=== PATIENT | female | born 1955 | race Caucasian/White ===

== ENCOUNTER 2021-05-06 10:49 | Outpatient (CLI) | payer BC, SELFPAY ==
--- NOTE | ~2021-05-06 | MM_ITS ---
EXAMINATION: MM screening tasia BI w claudia HISTORY: Screening TECHNIQUE: Craniocaudal and mediolateral oblique 3-D tomosynthesis images were obtained and synthetic 2-D images were generated. CAD analysis was submitted and interpreted. COMPARISON: No prior mammogram is available for comparison at this institution. BREAST PARENCHYMAL COMPOSITION: There are scattered areas of fibroglandular density. FINDINGS: There is a focal asymmetry in the lower inner quadrant of the right breast. There are no kline spicious masses, calcifications or architectural distortion in the left breast to suggest malignancy. IMPRESSION: 1. Focal right breast asymmetry. 2. Additional mammographic views and possible breast ultrasound are recommended. BI-RADS Category 0: Incomplete: Needs additional imaging evaluation. Reviewed, dictated and finalized at location A. IMPRESSION: 1. Focal right breast asymmetry. 2. Additional mammographic views and possible breast ultrasound are recommended . BI-RADS Category 0: Incomplete: Needs additional imaging evaluation.
== END 2021-05-06 10:50 | disposition home or self-care (01) ==
LOC: CHSIMG 10:51
PROVIDERS: PCP Family Medicine; Visit Provider Family Medicine
DX: Z12.31 Encounter for screening mammogram for malignant neoplasm of breast (principal)
CPT/HCPCS: 77063; 77067

== ENCOUNTER 2021-05-18 08:22 | Outpatient (CLI) | payer BC, SELFPAY ==
--- NOTE | ~2021-05-18 | XR_ITS ---
XR shoulder RT min 2V DATE: 05/18/2021 08:46 INDICATION: Right shoulder pain, limited range of motion. Impingement syndrome of right. Shoulder TECHNIQUE: 4 views COMPARISON: None FINDINGS: There is spurring at the right acromioclavicular joint consistent with degenerative change. Spurring is particularly prominent inferiorly. No fracture or dislocation, periosteal reaction or bone destruction or abnormal right shoulder soft t issue calcification is detected. IMPRESSION: Degenerative spurring at right acromioclavicular joint, particularly prominent inferiorly Reviewed, dictated and finalized at location B. IMPRESSION: Degenerative spurring at right acromioclavicular joint, particularl y prominent inferiorly
== END 2021-05-18 08:23 | disposition home or self-care (01) ==
LOC: CHSIMG 08:25
PROVIDERS: PCP Family Medicine; Visit Provider Family Medicine
DX: M75.41 Impingement syndrome of right shoulder (principal)
CPT/HCPCS: 73030

== ENCOUNTER 2021-05-25 08:00 | Outpatient (CLI) | payer BC, SELFPAY ==
--- NOTE | ~2021-05-25 | MM_ITS ---
CORRECTED REPORT ORDER CHANGED [facility] [place] 0910 05/26/21 MM diagnostic tasia RT w claudia DATE: 05/25/2021 08:34 INDICATION: Focal asymmetry in the lower inner quadrant of right breast on 05/06/2021 screening mammogram TECHNIQUE: Digital ML full-field and right craniocaudal and MLO spot Tomosynthesis images. Rolled medial and rolled lateral craniocaudal views. COMPARISON: 05/06/2021 bilateral digital screening mammogram FINDINGS: No suspicious mass or architectural distortion, malignant calcification, skin thickening or retraction of the right breast is detected. There is no reproducible abnormality is noted at the lower inner quadrant of the left breast. IMPRESSION: BI-RADS Category 1: Negative Recommendation: Routine annual mammographic screening Reviewed, dictated and finalized at Location A. Reviewed, dictated and finalized at location A. MTDD
== END 2021-05-25 08:01 | disposition home or self-care (01) ==
LOC: CHSIMG 08:03
PROVIDERS: PCP Family Medicine; Visit Provider Family Medicine
DX: R92.8 Other abnormal and inconclusive findings on diagnostic imaging of breast (principal)
CPT/HCPCS: 77061; 77065; G0279

== ENCOUNTER 2022-01-01 07:54 | Outpatient (CLI) | payer BC, SELFPAY ==
--- NOTE | ~2022-01-01 | MR_ITS ---
EXAMINATION: MR brain/brain stem wo con DATE: 01/01/2022 15:50 CDT INDICATION: Headache TECHNIQUE: Magnetic resonance imaging (MRI) of the brain and brainstem was performed without intraven ous contrast. Sequences included sagittal and axial T1-weighted SE, axial diffusion-weighted FS SE, a xial T2*-weighted GRE, axial T2-weighted FLAIR Propeller, and axial T2-weighted Propeller. Apparent d iffusion coefficient (ADC) maps were created. COMPARISON: FINDINGS: The brain volume and ventricular system are within normal limits. The brain parenchymal si gnal intensity pattern and cantu/white matter is normal and there is no evidence of hemorrhage, space occupying masses or infarctions. There are scattered mild periventricular and subcortical white matte r changes, most likely related to small vessel ischemic disease (microangiopathy). The flow signal voids of the major arterial structures about the [place] and within the brando r dural venous sinuses appear grossly unremarkable and patent. The seventh and eighth cranial nerve complexes are normal. The mid sagittal image demonstrates a normal craniovertebral junction and vicente us callosum. The paranasal sinuses are grossly unremarkable. IMPRESSION: 1: No acute intracranial abnormality. 2: Chronic age-related findings. Reviewed, dictated and finalized at location A.
== END 2022-01-01 07:55 | disposition home or self-care (01) ==
LOC: CHSIMG 07:55
PROVIDERS: PCP Family Medicine; Visit Provider Family Medicine
DX: R51.9 Headache, unspecified (principal); G89.29 Other chronic pain
CPT/HCPCS: 70551

== ENCOUNTER 2022-07-20 12:47 | Outpatient (CLI) | payer MEDICARE, SELFPAY ==
--- NOTE | ~2022-07-20 | MM_ITS ---
EXAMINATION: MM screening [facility] BI w lcaudia HISTORY: Screening TECHNIQUE: Craniocaudal and mediolateral oblique 3-D tomosynthesis images were obtained and synthetic 2-D images were generated. CAD analysis was submitted and interpreted. COMPARISON: 05/06/2021 BREAST PARENCHYMAL COMPOSITION: There are scattered areas of fibroglandular density. FINDINGS: Focal asymmetry in the lower inner quadrant of the right breast is unchanged. There is no e vidence of suspicious mass, calcification, or architectural distortion to suggest malignancy in eithe r breast. There has been no suspicious interval change. IMPRESSION: 1. No mammographic evidence of malignancy. 2. Recommend routine screening mammography in one year. BI-RADS Category 2: Benign finding(s). Reviewed, dictated and finalized at location B. AL MERCHANDISING DIRECTOR
== END 2022-07-20 12:48 | disposition home or self-care (01) ==
LOC: CHSIMG 12:49
PROVIDERS: PCP Family Medicine; Visit Provider Family Medicine
DX: Z12.31 Encounter for screening mammogram for malignant neoplasm of breast (principal)
CPT/HCPCS: 77063; 77067

== ENCOUNTER 2022-11-04 12:24 | Outpatient (CLI) | payer MEDICARE, SELFPAY ==
[2022-11-04 13:35] LABS: Alanine Aminotransferase 21 U/L (14-59); Albumin Level 4.4 g/dL (3.4-5.0); Alkaline Phosphatase 92 U/L (46-116); Anion Gap 12 mmol/L (8-16); Aspartate Amino Transferase 15 U/L (15-37); Bilirubin,Total 0.4 mg/dL (0.00-1.00); Blood Urea Nitrogen 16 mg/dL (7-18); Calcium 9.6 mg/dL (8.5-10.1); Carbon Dioxide 27 mmol/L (21-32); Chloride 103 mmol/L (98-108); Cholesterol 178 mg/dL (0-200); Estimated Glomerular Filt Rate > 60; Glucose 144 mg/dL (70-99); HDL Direct 45 mg/dL (40-60); LDL Cholesterol Calculated 85 mg/dL (<130); Osmolality Calculated 298 mOsm/kg (285-295); Potassium 4.3 mmol/L (3.5-5.1); Sodium 142 mmol/L (136-145); Total Protein 8.3 g/dL (6.4-8.2); Triglycerides 238 mg/dL (0-150); Troponin I 5.6 ng/L (0.00-60.4)
== END 2022-11-04 12:25 | disposition home or self-care (01) ==
LOC: CHSLAB 12:26
PROVIDERS: PCP Family Medicine; Visit Provider Family Medicine
DX: R07.89 Other chest pain (principal); E11.9 Type 2 diabetes mellitus without complications
CPT/HCPCS: 36415; 80053; 80061; 83036; 84484

== ENCOUNTER 2022-11-21 09:44 | Outpatient (CLI) | payer MEDICARE, SELFPAY ==
--- NOTE | 2022-11-21 11:15 | EST_ITS ---
Patient Info Name: Yelena Randall Age: 67 years : 1955 Gender: Female Ht: 62 in Wt: 198 lbs BSA: 2.03 m2 Technical Quality: Good Exam Date: 11/21/2022 11:23 AM Exam Location: [facility] Patient Status: Outpatient Admit Date: 11/21/2022 Staff Ordering Physician: Jarret Leiva DO Attending Provider: Jarret Leiva DO Exam Type: CA stress anusha w NM Study Info A regadenoson stress test was performed. History/Risk Factors Hypertension: Yes Tobacco Use: Current - Frequency Unknown History/Risk Factors Patient has no known cardiac history or risk factors. Summary 1. 1. Negative lexiscan stress test for ischemic ST changes by ECG criteria. 2. 2. Stable hemodynamics throughout the test. 3. 3. Nuclear scan to follow and will be reported separately. Please correlate with it. Protocol: LEXISCAN Stress ECG Details Stage: REST Duration (min): 3 min : 2 sec HR (bpm): 71 SBP (mmHg): 133 DBP (mmHg): 74 Stage: REST Duration (min): 6 min : 5 sec HR (bpm): 77 SBP (mmHg): 133 DBP (mmHg): 74 Stage: STAGE 1 Duration (min): 0 min : 20 sec HR (bpm): 73 SBP (mmHg): 133 DBP (mmHg): 74 Stage: RECOVERY Duration (min): 0 min : 39 sec HR (bpm): 96 SBP (mmHg): 133 DBP (mmHg): 74 Stage: RECOVERY Duration (min): 1 min : 39 sec HR (bpm): 96 SBP (mmHg): 133 DBP (mmHg): 74 Stage: RECOVERY Duration (min): 2 min : 39 sec HR (bpm): 89 SBP (mmHg): 157 DBP (mmHg): 71 Stage: RECOVERY Duration (min): 3 min : 39 sec HR (bpm): 89 SBP (mmHg): 136 DBP (mmHg): 72 Stage: RECOVERY Duration (min): 4 min : 39 sec HR (bpm): 87 SBP (mmHg): 136 DBP (mmHg): 71 Stage: RECOVERY Duration (min): 5 min : 27 sec HR (bpm): 85 SBP (mmHg): 136 DBP (mmHg): 71 Rest HR: 77 bpm Peak HR: 98 bpm Rest Sys BP: 133 mmHg Peak Sys BP: 157 mmHg Max Pred HR: 155 bpm % Max Pred HR: 63 % Target HR: 132 bpm Max RPP: 15,386 bpm*mmHg BP Response: Normal blood pressure response Termination Reason: Completed Protocol Cardiac Symptoms: None Total Time: 0 min : 20 sec Rest Pantoja BP: 74 mmHg Peak Pantoja BP: 71 mmHg Total Dose: 0.4 mg Resting ECG Sinus rhythm, delayed precordial R/S transition. Stress ECG No abnormal ST/T wave changes. Arrhythmias Frequent PVCs. Report Signatures
--- NOTE | 2022-11-21 16:39 | WPDCARIOSTRE ---
Nuclear Stress Test INDICATIONS Indications: Chest pain PROCEDURE Procedure Performed: Myocardial Perf Spect-Multi Procedure: Patient underwent a lexiscan stress test and immediately was injected with 30.0 mCi of cardiolyte. Multiple tomographic images were obtained. These are of good quality. There is no evidence of perfusion defects with stress imaging. A separate resting images were obtained after patient was injected with 10.4 mCi of cardiolyte. Multiple tomographic images were obtained. These are of good quality. There is no evidence of perfusion defects with rest imaging. CONCLUSION Conclusion: 1. Normal myocardial perfusion imaging demonstrating no evidence of perfusion defects with stress or rest imaging. 2. No evidence of reversible ischemia. 3. Left ventriculogram demonstrates normal measured ejection fraction of 79% with no wall motion abnormalities. 4. TID score 0.9 is normal.
== END 2022-11-21 09:45 | disposition home or self-care (01) ==
LOC: CHSIMG 09:46
PROVIDERS: PCP Family Medicine; Visit Provider Family Medicine
DX: R07.9 Chest pain, unspecified (principal)
CPT/HCPCS: 78452; 93017; A9502; J2785

== ENCOUNTER 2022-12-14 08:47 | Outpatient (CLI) | payer MEDICARE, SELFPAY ==
--- NOTE | 2022-12-14 11:00 | NEURO_ITS ---
Impression: Patient reports a history of bilateral upper extremity pain. # Evidence of right ulnar neuropathy. # Normal needle/EMG exam. # Clinical correlation recommended. Nerve Conduction Studies Anti Sensory Summary Table Stim Site NR Peak (ms) P-T Amp (?V) Site1 Site2 Delta-P (ms) Dist (cm) Sal (m/s) Left Median Anti Sensory (2-3nd Digit) Wrist 3.4 42.8 Wrist 2-3nd Digit 3.4 14.0 41 Wrist 3.5 55.3 Wrist 2-3nd Digit 3.4 14.0 41 Right Median Anti Sensory (2-3nd Digit) Wrist 3.7 22.2 Wrist 2-3nd Digit 3.7 14.0 38 Wrist 3.4 21.4 Wrist 2-3nd Digit 3.7 14.0 38 Left Radial Anti Sensory (Base 1st Digit) Wrist 1.8 45.3 Wrist Base 1st Digit 1.8 0.0 Right Radial Anti Sensory (Base 1st Digit) Wrist 1.8 46.2 Wrist Base 1st Digit 1.8 0.0 Left Ulnar Anti Sensory (5th Digit) Wrist 2.8 50.9 Wrist 5th Digit 2.8 14.0 50 Right Ulnar Anti Sensory (5th Digit) Wrist 2.7 35.9 Wrist 5th Digit 2.7 14.0 52 Motor Summary Table Stim Site NR Onset (ms) O-P Amp (mV) Site1 Site2 Delta-0 (ms) Dist (cm) Sal (m/s) Left Median Motor (Abd Poll Brev) Wrist 3.2 7.2 Elbow Wrist 3.9 21.0 54 Elbow 7.1 4.5 Right Median Motor (Abd Poll Brev) Wrist 3.1 9.2 Elbow Wrist 4.0 21.0 53 Elbow 7.1 5.1 Left Ulnar Motor Run (Abd Dig Minimi) Wrist 2.5 7.8 A Elbow Wrist 5.6 31.0 55 A Elbow 8.1 6.9 B Elbow Wrist 3.7 21.0 57 B Elbow 6.2 6.9 Right Ulnar Motor (Abd Dig Minimi) Wrist 2.8 10.1 A Elbow Wrist 5.6 27.0 48 A Elbow 8.4 7.0 B Elbow Wrist 4.2 18.0 43 B Elbow 7.0 6.9 F Wave Studies NR F-Lat (ms) L-R F-Lat (ms) Left Median (Mrkrs) (Abd Poll Brev) 27.48 1.40 Right Median (Mrkrs) (Abd Poll Brev) 26.08 1.40 Left Ulnar (Mrkrs) (Abd Dig Min) 27.65 0.78 Right Ulnar (Mrkrs) (Abd Dig Min) 26.87 0.78 EMG Side Muscle Nerve Root Ins Act Fibs Amp Dur Recrt Comment Right 1stDorInt Ulnar C8-T1 Nml Nml Nml Nml Nml Right Ext Indicis Radial (Post Int) C7-8 Nml Nml Nml Nml Nml Right Ext Digitorum Radial (Post Int) C7-8 Nml Nml Nml Nml Nml Right BrachioRad Radial C5-6 Nml Nml Nml Nml Nml Right PronatorTeres Median C6-7 Nml Nml Nml Nml Nml Right Abd Poll Brev Median C8-T1 Nml Nml Nml Nml Nml Left 1stDorInt Ulnar C8-T1 Nml Nml Nml Nml Nml Left Ext Indicis Radial (Post Int) C7-8 Nml Nml Nml Nml Nml Left Ext Digitorum Radial (Post Int) C7-8 Nml Nml Nml Nml Nml Left BrachioRad Radial C5-6 Nml Nml Nml Nml Nml Left PronatorTeres Median C6-7 Nml Nml Nml Nml Nml Left Abd Poll Brev Median C8-T1 Nml Nml Nml Nml Nml MTDD
== END 2022-12-14 08:48 | disposition home or self-care (01) ==
LOC: ANHNEURO 08:47
PROVIDERS: PCP Family Medicine; Visit Provider Family Medicine
DX: G56.21 Lesion of ulnar nerve, right upper limb (principal)
CPT/HCPCS: 95886; 95911

== ENCOUNTER 2023-01-10 08:55 | Outpatient (CLI) | payer MEDICARE, SELFPAY ==
--- NOTE | ~2023-01-10 | XR_ITS ---
Right elbow Technique: AP, oblique, and lateral views were obtained. Clinical History: Pain Findings: No acute fracture or dislocation is seen. Osseous alignment is anatomic. Joint spaces are p reserved. There is no displacement of the fat pads, and no evidence for joint effusion. There is hete rotopic ossification/enthesopathic change, less likely chronic fracture fragment, at the lateral epic ondyle region. Impression: Probable enthesopathic change and/or heterotopic ossification adjacent to the lateral epicondyle of t he humerus. Chronic fracture fragment is less likely. No acute abnormality seen. Reviewed, dictated and finalized at location . Impression: Probable enthesopathic change and/or heterotopic ossification adjacent to the l ateral epicondyle of the humerus. Chronic fracture fragment is less likely. No acute abnormality seen.
--- NOTE | ~2023-01-10 | XR_ITS ---
Left elbow Technique: AP, oblique, and lateral views were obtained. Clinical History: Pain Findings: No acute fracture or dislocation is seen. Osseous alignment is anatomic. Joint spaces are p reserved. There is no displacement of the fat pads, and no evidence for joint effusion. There is enth esopathic change/heterotopic ossification adjacent to the lateral epicondyle, less likely chronic fra cture fragment. Impression: Enthesopathic change/heterotopic ossification adjacent to the lateral epicondyle of the humerus, less likely chronic fracture fragment. Reviewed, dictated and finalized at location M. Impression: Enthesopathic change/heterotopic ossification adjacent to the lateral epicondyl e of the humerus, less likely chronic fracture fragment.
== END 2023-01-10 08:56 | disposition home or self-care (01) ==
LOC: CHSIMG 08:58
PROVIDERS: PCP Family Medicine; Visit Provider Orthopaedic Surgery
DX: M25.521 Pain in right elbow (principal); M25.522 Pain in left elbow
CPT/HCPCS: 73080

== ENCOUNTER 2023-01-14 09:04 | Outpatient (CLI) | payer MEDICARE, SELFPAY ==
--- NOTE | ~2023-01-14 | MR_ITS ---
EXAMINATION: MR shoulder RT wo con DATE: 01/14/2023 09:53 INDICATION: Right shoulder pain. TECHNIQUE: Magnetic resonance imaging (MRI) of the right shoulder was performed without intravenous c ontrast. COMPARISON: Right shoulder radiographs 05/18/2021 FINDINGS: Coracoacromial arch: The acromion undersurface is flat in morphology (type I). There is severe acromioclavicular joint ost eoarthritis. Subacromial spurring is noted. There is moderate subacromial/subdeltoid bursitis. Rotator cuff: There is a full-thickness tear of supraspinatus tendon and anterior infraspinatus tendon measuring 13 mm anterior to posterior by 24 mm proximal to distal. Teres minor tendon is normal. There is mild kline bscapularis tendinopathy. There is no asymmetric fatty atrophy of the rotator cuff muscle bellies. Biceps tendon and glenoid labrum: There is a complete tear of proximal biceps tendon. There is a tear of superior glenoid labrum from 1 1:00 to 1:00 (SLAP tear). Fluid: There is a small glenohumeral joint effusion. Bones/cartilage: There is partial-thickness cartilage loss of glenoid and humeral head. Osteophytes are noted. IMPRESSION: 1. Full-thickness rotator cuff tear. 2. Mild glenohumeral joint chondrosis. 3. Severe acromioclavicular joint osteoarthritis. 4. Complete tear of proximal biceps tendon. 5. Small glenohumeral joint effusion and moderate subacromial/subdeltoid bursitis. Reviewed, dictated and finalized at location A. IMPRESSION: 1. Full-thickness rotator cuff tear. 2. Mild glenohumeral joint chondrosis. 3. Severe acromioclavicular joint osteoarthritis. 4. Complete tear of proximal biceps tendon. 5. Small glenohumeral joint effusion and moderate subacromial/subdeltoid bursit is.
== END 2023-01-14 09:05 | disposition home or self-care (01) ==
LOC: CHSIMG 09:05
PROVIDERS: PCP Family Medicine; Visit Provider Orthopaedic Surgery
DX: S49.91XA Unspecified injury of right shoulder and upper arm, initial encounter (principal); M75.101 Unspecified rotator cuff tear or rupture of right shoulder, not specified as traumatic; M94.8X1 Other specified disorders of cartilage, shoulder; M19.011 Primary osteoarthritis, right shoulder; S46.211D Strain of muscle, fascia and tendon of other parts of biceps, right arm, subsequent encounter; M25.411 Effusion, right shoulder; M75.51 Bursitis of right shoulder
CPT/HCPCS: 73221

== ENCOUNTER 2023-02-02 13:01 | Outpatient (CLI) | payer MEDICARE, SELFPAY ==
[2023-02-02 13:50] LABS: Anion Gap 12 mmol/L (8-16); Blood Urea Nitrogen 13 mg/dL (7-18); Calcium 9.4 mg/dL (8.5-10.1); Carbon Dioxide 26 mmol/L (21-32); Chloride 102 mmol/L (98-108); Estimated Glomerular Filt Rate > 60; Glucose 204 mg/dL (70-99); Osmolality Calculated 296 mOsm/kg (285-295); Potassium 4.1 mmol/L (3.5-5.1); Sodium 140 mmol/L (136-145)
== END 2023-02-02 13:02 | disposition home or self-care (01) ==
LOC: CHSLAB 13:02
PROVIDERS: PCP Family Medicine; Visit Provider Anesthesiology
DX: Z01.818 Encounter for other preprocedural examination (principal); E11.9 Type 2 diabetes mellitus without complications
CPT/HCPCS: 36415; 80048

== ENCOUNTER 2023-02-15 01:04 | Day surgery (SDC) | payer MEDICARE, SELFPAY ==
[2023-02-02 09:13] VITALS: BMI 35.5
--- NOTE | 2023-02-02 09:35 | PC.NURSE ---
Report to the Outpatient Waiting Room, entrance under the green pavilion located off [facility], at time __9:00AM on date __02/15/23 . Planned Procedure Time: ___111:00AM . Time changes happen often and if your time is changed the preop area will call you the afternoon before. - You and your visitor will be asked to self-screen and do not enter if you have any COVID symptoms. - A mask is optional within the hospital at this time. Patients may have clear liquids (water, carbonated beverages, clear teas, apple juice) until 3 hours prior to surgery with a maximum of 20 ounces. - No food from midnight until time of surgery Take the following medications with a SIP of water the morning of surgery: ___NONE DO NOT STOP ANY OF YOUR OTHER PRESCRIPTION MEDICATIONS PRIOR TO SURGERY ?EXCEPT THE FOLLOWING Medications to discontinue per physician _HOLD ASPIRIN PER DR RODRIGUEZ- PATIENT CALLING OFFICE TO CLARIFY, HOLD ALL VITAMINS/SUPPLEMENTS 3 DAYS PRE-OP PER ANESTHESIA-Date to take last dose___02/11/23 Please no make-up, nail saudi arabian, hairspray, perfume, deodorant, or body powder the day of surgery. No jewelry (including any body piercings) or valuables the day of surgery, leave them at home. Please take a shower or bath the night before, or the morning of, surgery with an antibacterial soap. Wear comfortable, loose fitting clothing. Children are encouraged to wear pajamas. - Jewelry must be removed prior to entering the operating room. Rings and piercings that are not removed may be cut off. - The hospital will not accept responsibility for valuables. - Please leave all valuables, including medications, at home the day of surgery. If you are going home after surgery, a licensed pick up driver must drive you home. - NO public transportation without another adult if you receive anesthesia. - We recommend that an adult stay with you for 24 hours following discharge. - We also recommend that you do not drive, make important decision, drink alcoholic beverages, or take any drugs that were not prescribed by your health care provider for at least 24 hours after your discharge time. FOLLOW ANY ADDITIONAL INSTRUCTIONS PER SURGEON- NICKI DIAZ PRE-OP. If you or anyone in your household have experienced Covid symptoms in the past week, please notify your surgeon or the nurse liaison at the phone number below for possible testing. Telephone instructions given to ___PATIENT and asked if any additional questions and then verbalized understanding. Patient advised to call surgeon office or pre surgery nurse liaison [phone] if any additional questions.
[2023-02-15] VITALS (11 sets, daily range): BP systolic 121–151; BP diastolic 62–82; PULSE 80–104; RESP 16–25; TEMP 36.6; O2SAT 93–100
--- NOTE | 2023-02-15 07:15 | WPDHPUPDATE1 ---
History and Physical Update Update Date/Time: 02/15/23 07:15 History and Physical has been reviewed, including an updated exam of the patient. There are NO changes in the patient's condition. Risks, benefits, and alternatives have been discussed and questions answered. Patient agrees to proceed with procedure.
[2023-02-15] MEDS: LACTATED RINGERS 1,000 ML 30 ML IV CONT (08:56)
[2023-02-15] MEDS: ACETAMINOPHEN 500 MG TABLET 1000 MG PO (09:17)
[2023-02-15] MEDS: CELECOXIB 200 MG CAPSULE PO (09:17)
[2023-02-15 09:37] LABS: Glucose Point of Care 145 mg/dl (65-105)
--- NOTE | 2023-02-15 10:08 | WPDANESEPPF ---
Anes - Initial Pre Proc Eval Procedure: Operation Date: 02/15/23 11:00 Proposed Procedures p Right Rotator Cuff Repair with Distal Clavicle Excision, Possible Right Shoulder Biceps Tenodesis - Franklyn Solis MD Date/Time: 02/15/23 10:08 Surgeon: Franklyn Solis MD Pre Op Diagnosis: right rotator tear, biceps tendon rupture Patient Data Age: 67 Gender: F Height: 1.6 m Weight: 89.8 kg Last Vital Signs Pulse 80 02/15/23 08:35 Resp 16 02/15/23 08:35 BP 134/62 02/15/23 08:35 Pulse Ox 100 02/15/23 08:35 O2 Del Method Room Air 02/15/23 08:35 Allergies Allergy/AdvReac Type Severity Reaction Status Date / Time Sulfa (Sulfonamide Allergy Severe hives Verified 02/15/23 08:23 Antibiotics) metformin AdvReac Intermediate NAUSEA, Verified 02/15/23 08:23 DIARRHEA Home Medications Medication Instructions Recorded Confirmed Type aspirin 81 mg tablet,delayed 81 mg PO DAILY 06/29/20 02/02/23 History release omeprazole 20 mg capsule,delayed 20 mg PO DAILY 06/29/20 02/02/23 History release chlorhexidine gluconate 4 % 1 applic topical ONCE #237 mL 02/01/23 02/02/23 Rx topical liquid (Hibiclens) clindamycin 1 %-benzoyl peroxide 5 1 applic topical DAILY #25 grams 02/01/23 02/02/23 Rx % topical gel amlodipine 10 mg tablet 10 mg PO HS 02/02/23 02/02/23 History ascorbic acid-vitamin E-zinc tablet 2 tablet PO DAILY 02/02/23 02/02/23 History cetirizine 10 mg capsule (Zyrtec) 10 mg PO DAILY 02/02/23 02/02/23 History cholecalciferol (vitamin D3) 10 10 mcg PO DAILY 02/02/23 02/02/23 History mcg (400 unit) capsule chromium picolinate 200 mcg capsule 200 mcg PO DAILY 02/02/23 02/02/23 History cinnamon bark 500 mg capsule 2,000 mg PO HS 02/02/23 02/02/23 History (Cinnamon) cyanocobalamin (vitamin B-12) 1,000 mcg PO DAILY 02/02/23 02/02/23 History 1,000 mcg capsule cyclobenzaprine 10 mg tablet 10 mg PO TID PRN Spasms 02/02/23 02/02/23 History losartan 100 mg tablet 100 mg PO QAM 02/02/23 02/02/23 History jzmfykrrniyh-Jv-rgmc-minerals 1 tablet PO DAILY 02/02/23 02/02/23 History pravastatin 40 mg tablet 40 mg PO DAILY 02/02/23 02/02/23 History vit A 7,160 unit-vit C 113 mg-vit 1 tablet PO DAILY 02/02/23 02/02/23 History E 100 voim-dcjj-cobvhh tablet vitamin K2 100 mcg capsule 100 mcg PO DAILY 02/02/23 02/02/23 History dulaglutide 0.75 mg/0.5 mL See Rx Instructions .Route 02/13/23 Rx subcutaneous pen injector .COMPLEX #12 mL (Trulicity) Laboratory Tests 02/15/23 09:34 POC Capillary Glucose 145 H mg/dl (65-105) Patient hx anesthesia problems: post op nausea/vomiting Family hx anesthesia problems: none Results Review: All pre-operative results and documents have been reviewed as part of the pre-operative evaluation. [facility] Past Medical History Medical History (Updated 02/14/23 @ 18:29 by Damion Tse DO) GERD (gastroesophageal reflux disease) Hyperlipidemia Hypertension Panic attack PONV (postoperative nausea and vomiting) Type 2 diabetes mellitus Surgical History Surgical History History of cholecystectomy History of right knee surgery History of tubal ligation Family History Family History (Updated 02/09/23 @ 11:21 by [place] Adan CMA) Unknown Hypertension Diabetes mellitus Hyperlipidemia Stomach cancer Social History Social History Smoking packs per day: 2 Smoking cigarettes per day: 40.0 Years smoked: 5 Smoking pack-years: 10.00 Smoking status: Former smoker Tobacco type: cigarettes Smoking end date: 07/01/76 Substance use: never Living arrangements: with family Additional living arrangements comments: [employer]USB [employer] CHILDREN Occupation/Education: retired Spiritual care concerns: No Anes - Eval Final PreProcedure Day of Procedure 02/15/23 10:08 Patient weight: obese
--- NOTE | 2023-02-15 10:19 | WPDANESPNB ---
Anes - Peripheral Nerve Block Date/Time: 02/15/23 10:19 I have discussed with the patient/family/POA the placement of a peripheral nerve block for post-operative pain management, including associated risks, benefits, complications, and side effects. Alternative methods of post-operative analgesia were detailed. Questions were solicited and answers provided to the satisfaction of the patient/family/POA. Time-Out: A pre-procedural Time-Out was completed immediately before starting the procedure and confirmed: Patient Identification, Site, Procedure, Patient Position and the Availability of Requisite Equipment. Clinical Indications: Acute post-operative pain management requested by the operative surgeon. Nerve Block Insertion Note Anes-nerve block: interscalene right Patient position: supine Skin prep: chlorhexidine Needle: 22 gauge, stimulating, insulated echogenic needle. Needle length: 50 mm Technique: ultrasound Injectate: bupivacaine 0.5% with epi 5 mcg/ml (30cc- no epi) Observations: tolerated well Complications: none Procedure start time:: 1120 Procedure end time:: 1123
[2023-02-15] MEDS: SCOPOLAMINE 1.5 MG PATCH TRANSDERM (11:17)
[2023-02-15] MEDS: ceFAZolin 2 GM/D5W 50 ML 2 GM/50 ML BAG IVPB (11:29)
[2023-02-15] MEDS: HYDROGEN PEROXIDE 3% SOLN(*SP) 473 ML BOTTLE 237 ML IRRIGATION (12:27)
--- NOTE | 2023-02-15 14:17 | W.PM.PROC2 ---
Procedure Note - Detailed Date of Procedure 02/15/23 Pre-op Diagnosis right rotator tear, chronic biceps tendon rupture Post-op Diagnosis Same Procedure Performed REPAIR RIGHT ROTATOR CUFF Surgeon Franklyn Solis MD Anesthesia General Description of Procedure THE PATIENT WAS TAKEN TO THE OPERATING ROOM AND THEN INTUBATED AND PLACED IN THE BEACH CHAIR POSITION. THE RIGHT UPPER EXTREMITY WAS PREPPED AND DRAPED IN THE NORMAL STERILE FASHION. AN INCISION WAS MADE IN BETWEEN THE SALLY-LATERAL ACROMION AND THE AC JOINT. THE FASCIA WAS IDENTIFIED. THE AC JOINT WAS IDENTIFIED AND INCISED. THERE WAS SEVERE DJD TO THE AC JOINT. A DISTAL CLAVICLE EXCISION WAS PREFORMED REMOVING APPROXIMATELY 1 CM OF DISTAL CLAVICLE. NEXT 5 MM OF THE ACROMIAL JOINT SURFACE WAS REMOVED. THERE WAS GOOD DECOMPRESSION OF THE AC JOINT. THE WOUND WAS WASHED AND THE CAPSULE WAS REPAIRED WITH 0 VICRYL SUTURE NEXT A MINI OPEN INCISION WAS MADE THROUGH THE DELTOID MUSCLE EXPOSING THE SUBACROMIAL SPACE. THERE WAS SIGNIFICANT IMPINGEMENT OF THE ACROMION ON THE SUBACROMIAL SPACE WITH LARGE ANTEROLATERAL OSTEOPHYTE. AN ACROMIOPLASTY WAS PREFORMED WHICH DECOMPRESSED THE SUB ACROMIAL SPACE WITH GOOD VISUALIZATION OF THE ROTATOR CUFF. THE ROTATOR CUFF WAS IDENTIFIED. THERE WAS A FULL THICKNESS TEAR. IT MEASURED APPROXIMATELY 4 CM X 2 CM AND WAS NEARLY A COMPLETE TEAR OF ALL ROTATOR CUFF STRUCTURES. THE BICEPS TENDON WAS RETRACTED AND WAS STABLE IT WAS SCARRED IN. THE GREATER TUBEROSITY WAS DEBRIDED TO BLEEDING BONE. 5 ARTHREX CORK SCREW SUTURE ANCHORS WERE PLACED IN TO BONE AND HAD GOOD BITES. RANDAL-KARLA TYPE REPAIRS WERE DONE TO THE ROTATOR CUFF AND THERE WAS GOOD APPROXIMATION TO THE GREATER TUBEROSITY. THE REPAIR WAS EXCELLENT. THERE WAS NO IMPINGEMENT ON THE REPAIR FROM THE ACROMION WITH RANGE OF MOTION. THE WOUND WAS IRRIGATED WITH COPIOUS AMOUNTS OF ANTIBIOTIC SOLUTION, STERILE BETADINE AND H202. THE DELTOID MUSCLE WAS REPAIRED WITH #2 FIBER WIRE AND 0 VICRYL SUTURE. THE SUBCUTANEOUS LAYER WAS APPROXIMATED WITH 2-0 VICRYL. THE SKIN WAS APPROXIMATED WITH 3-0 QUIL AND DERMABOND. STERILE DRESSING WAS APPLIED. PATIENT WAS EXTUBATED. Estimated Blood Loss 50 Complications No immediate complications Condition Stable Disposition PACU
[2023-02-15 14:37] LABS: Glucose Point of Care 174 mg/dl (65-105)
== END 2023-02-15 17:45 | disposition home or self-care (01) ==
PROVIDERS: PCP Family Medicine; Visit Provider Orthopaedic Surgery
PROC: (CPT 23420; principal; 2023-02-15 11:00)
DX: M75.111 Incomplete rotator cuff tear or rupture of right shoulder, not specified as traumatic (principal); M75.81 Other shoulder lesions, right shoulder; M75.41 Impingement syndrome of right shoulder; G89.18 Other acute postprocedural pain; I10 Essential (primary) hypertension; E78.5 Hyperlipidemia, unspecified; E11.9 Type 2 diabetes mellitus without complications; K21.9 Gastro-esophageal reflux disease without esophagitis; Z87.891 Personal history of nicotine dependence; E66.9 Obesity, unspecified; Z68.35 Body mass index [BMI] 35.0-35.9, adult; Z79.82 Long term (current) use of aspirin; Z79.899 Other long term (current) drug therapy
CPT/HCPCS: 23412; 23120; 64415; 82948; A9270; C1713; J0330; J0690; J1100; J2250; J2371; J2405; J2704; J3010; J7120

== ENCOUNTER 2023-03-08 16:34 | Outpatient (RCR) | payer MEDICARE, SELFPAY ==
[2023-03-08 16:44] VITALS: BP_SYST 60
--- NOTE | 2023-03-09 17:04 | OPREHPOC ---
Outpatient Therapy Plan of Care This is a Multidisciplinary Plan of Care that may contain components documented by all disciplines (PT, OT, and ST.) PT Problem 1 PT Problem #1 Knowledge Deficit PT Goal 1 Goal 1. Patient to demonstrate independence with HEP to improve progress made in PT. Target Visit 3 PT Problem 2 PT Problem #2 Impaired Range of Motion PT Goal 1 Goal 1. Patient to demonstrate 150 degrees or better of passive shoudler flexion and abduction to improve ability to reach overhead into kitchen cabinets. 2. Patient to demonstrate 60 degrees or better of passive shoulder ER to improve ability to brush hair. Target Visit 9 PT Problem 3 PT Problem #3 Impaired Strength PT Goal 1 Goal 1. patient to be ready to progress to arom shoulder movement Target Visit 9 PT Problem 4 PT Problem #4 Pain PT Goal 1 Goal 1. Patient to report no more than 2/10 throughout day to aid in shoulder rehab and HEP performance Target Visit 9 PT Problem 5 PT Problem #5 Impaired Functional Mobil PT Goal 1 Goal 1. Patient to sleep through the night to decrease stress and improve healing time of the R shoulder Target Visit 9
--- NOTE | 2023-03-09 17:04 | PTOPEVAL1 ---
Assessment and note entered by JT File, PT Evaluation Information Assessment Status Evaluation Diagnosis s/p R rotator cuff repair Onset 02/15/23 Subjective Information Patient reports having R rotator cuff repair surgery 3 weeks ago today. She reports prior to surgery she had pain with movement of R shoulder. She states sometime in November 2022 was when the R shoulder pain started as she fell and caught herself with her R UE. She reports she is currently limited in household activities such as cooking, washing dishes, and laundry. She states she had tendonitis in the R elbow years ago, but has since had no issues with this. Patient reports she typically has higher pain levels and stiffness in the morning. She has been using ice and NSAIDs to treat pain at home. She notes limitations with washing hair, driving, washing heavy dishes, and getting food out of the oven. She is right handed and has difficulty with ADLs as this is her dominant hand. Reported Pain Level Pain Score 3: Self Report Assessment PT Clinical Summary Mrs. Randall is a 67 y/o female who presents to skilled PT 3 weeks s/p R rotator cuff repair. Her current surgical protocol allows for passive ROM to R shoulde until 6 week post op. She currently is limited with daily activities such as driving, grooming, cooking, and laundry due to inability to actively move R shoulder. Patient presents with 61% functional decline assessed by the [facility]. She would benefit from skilled physical therapy to address limitations in rom and function within surgical protocol. Plan of Care Interventions Electrical Stimulation,Hot Pack/Cold Pack,Manual Therapy,Neuro Re-education,Patient/Caregiver Educati,Therapeutic Activities,Therapeutic Exercise PT Services Indicated Yes Treatment Frequency and 3 x/week for 9 visits Duration These treatments will address the objective and functional deficits as defined above. The patient will be advanced safely and appropriately in order for the patient to progress towards his/her prior level of function. Additional exercises will be introduced and as well as a comprehensive home exercise program upon discharge, if needed, ?to ensure carryover of functional gains achieved in the clinic. This treatment plan has been reviewed and agreement upon by the patient.
[2023-03-29 10:53] VITALS: BP_SYST 80
--- NOTE | 2023-03-29 13:31 | OPREHPOC ---
Outpatient Therapy Plan of Care This is a Multidisciplinary Plan of Care that may contain components documented by all disciplines (PT, OT, and ST.) PT Problem 1 PT Problem #1 Knowledge Deficit PT Goal 1 Goal 1. Patient to demonstrate independence with HEP to improve progress made in PT. Target Visit 3 Progress Met Comment continue to progress HEP PT Problem 2 PT Problem #2 Impaired Range of Motion PT Goal 1 Goal 1. Patient to demonstrate 150 degrees or better of passive shoulder flexion and abduction to improve ability to reach overhead into kitchen cabinets. 2. Patient to demonstrate 60 degrees or better of passive shoulder ER to improve ability to brush hair. Target Visit 18 Progress Partially Met Comment improved ROM, continue to progress PT Goal 2 Goal 1. Patient to achieve 75 degrees of active R shoulder flexion to improve ability to hang clothes to dry. 2. Patient to achieve 75 degrees of active R shoulder abduction to improve ability to brush hair. Target Visit 18 PT Problem 3 PT Problem #3 Impaired Strength PT Goal 1 Goal 1. patient to be ready to progress to arom shoulder movement Target Visit 9 Progress Met PT Goal 2 Goal 1. Patient to demonstrate overall 4-/5 or better R shoulder strength to improve ability to do dishes in home. Target Visit 18 PT Problem 4 PT Problem #4 Pain PT Goal 1 Goal 1. Patient to report no more than 2/10 throughout day to aid in shoulder rehab and HEP performance Target Visit 18 Progress Partially Met Comment continue to address PT Problem 5 PT Problem #5 Impaired Functional Mobil PT Goal 1 Goal 1. Patient to sleep through the night to decrease stress and improve healing time of the R shoulder 2. patient to reach into overhead cabinets with the R shoulder to put away dishes
--- NOTE | 2023-03-29 13:31 | PTOPREEVAL ---
Assessment and note entered by JT File, PT Evaluation Information Assessment Status Re-evaluation Diagnosis s/p R rotator cuff repair Onset 02/15/23 Subjective Information Patient reports her pain levels have decreased significantly over the past few days. She notes she has not taken any pain medciation the past two days and has been able to manage pain with ice and heat. Patient states she is now able to use her R hand more for activities like pouring a cup of coffee and holding a coffee mug. She still reports difficulty with opening jars and is unable to reach up to hang clothes on drying lines. Reported Pain Level Pain Score 2: Self Report Assessment PT Clinical Summary Mrs. Randall has attended 9 sessions of skilled PT to address R rotator cuff repair, making good progress towards goals. She demonstrates improved R shoulder passive flexion, abduction, and ER ROM this date. Patient reports improved pain levels and ability to perform functional tasks with the R hand. She continues to display limited active ROM as well as limited UE strength, making it difficult to perform overhead activities such as reaching into cabinets or hanging laundry. Appropriate to continue skilled therapy to address remaining deficits and improve patient's ability to perform tasks throughout the home. Plan of Care Interventions Electrical Stimulation,Hot Pack/Cold Pack,Manual Therapy,Neuro Re-education,Patient/Caregiver Educati,Therapeutic Activities,Therapeutic Exercise PT Services Indicated Yes Treatment Frequency and continue POC for 3x/week for additional 9 visits Duration These treatments will address the objective and functional deficits as defined above. The patient will be advanced safely and appropriately in order for the patient to progress towards his/her prior level of function. Additional exercises will be introduced and as well as a comprehensive home exercise program upon discharge, if needed, ?to ensure carryover of functional gains achieved in the clinic. This treatment plan has been reviewed and agreement upon by the patient.
[2023-04-20 09:07] VITALS: BP_SYST 113
--- NOTE | 2023-04-20 11:51 | OPREHPOC ---
Outpatient Therapy Plan of Care This is a Multidisciplinary Plan of Care that may contain components documented by all disciplines (PT, OT, and ST.) PT Problem 1 PT Problem #1 Knowledge Deficit PT Goal 1 Goal 1. Patient to demonstrate independence with HEP to improve progress made in PT. Target Visit 3 Progress Met Comment continue to progress HEP PT Problem 2 PT Problem #2 Impaired Range of Motion PT Goal 1 Goal 1. Patient to demonstrate 150 degrees or better of passive shoulder flexion and abduction to improve ability to reach overhead into kitchen cabinets. 2. Patient to demonstrate 60 degrees or better of passive shoulder ER to improve ability to brush hair. Target Visit 26 Progress Partially Met Comment improved ROM, continue to progress PT Goal 2 Goal 1. Patient to achieve 145 degrees of active R shoulder flexion to improve ability to hang clothes to dry. 2. Patient to achieve 125 degrees of active R shoulder abduction to improve ability to brush hair. Target Visit 26 Progress Partially Met Comment previous goal met, updated to continue progress of ROM PT Problem 3 PT Problem #3 Impaired Strength PT Goal 1 Goal 1. patient to be ready to progress to arom shoulder movement Target Visit 9 Progress Met PT Goal 2 Goal 1. Patient to demonstrate overall 4-/5 or better R shoulder strength to improve ability to do dishes in home. Target Visit 18 Progress Partially Met Comment continue to address PT Problem 4 PT Problem #4 Pain PT Goal 1 Goal 1. Patient to report no more than 2/10 throughout day to aid in shoulder rehab and HEP performance Target Visit 18 Progress Partially Met Comment continue to address PT Problem 5 PT Problem #5
--- NOTE | 2023-04-20 11:51 | PTOPREEVAL ---
Assessment and note entered by JT File, PT Evaluation Information Assessment Status Re-evaluation Diagnosis s/p R rotator cuff repair Onset 02/15/23 Subjective Information Patient reports no pain at beginning of today's visit. She notes that she still does have pain occasionally, noting it has reached 8/10 in the past week from lifting a heavy dish while cooking. She is able to reduce the pain with ice and NSAIDs. She reports no problems sleeping at night due to the shoulder. She notes that her shoulder continues to feel tight with motions, however the pain has greatly reduced since starting PT. She reports she has been able to hang clothes on a drying line, however still has difficulty with heavier items. She notes that she has started to use her R UE to wash her hair, however this greatly increases the pain. Reported Pain Level Pain Score 0: Self Report Assessment PT Clinical Summary Mrs. Randall has attended 18 sessions of skilled PT to address R rotator cuff repair, making progress towards goals. She demonstrates improved R shoulder passive and active ROM this date, however still has difficulty moving into overhead positions against gravity. Patient reports improved pain levels and ability to perform household tasks with the R UE such as cooking, washing her hair, and doing laundry. Patient continues to display limited strength with R shoudler flexion and abduction, making it difficult to perform daily chores and cleaning. Patient currently has 20.5% functional decline as assessed by the Quick [facility], decreasing from 38.6% at the last assessment. Appropriate to continue skilled therapy to address remaining ROM and strength deficits and improve patient's ability to perform functional tasks in the home and return to cleaning homes. Plan of Care Interventions Electrical Stimulation,Hot Pack/Cold Pack,Manual Therapy,Neuro Re-education,Patient/Caregiver Educati,Therapeutic Activities,Therapeutic Exercise PT Services Indicated Yes Treatment Frequency and continue POC 2x/week for additional 8 visits Duration These treatments will address the objective and functional deficits as defined above. The patient will be advanced safely and appropriately in order for the patient to progress towards his/her prior level of function. Additional exercises will be int
[2023-05-18 09:08] VITALS: BP_SYST 150
--- NOTE | 2023-05-18 10:09 | PTOPPROG ---
Assessment and note entered by Christa Guerin, PT Evaluation Information Assessment Status Re-evaluation Diagnosis s/p R rotator cuff repair Onset 02/15/23 Subjective Information Yelena Randall reports that her right shoulder is getting better but she still has pain first thing in the morning and when she is working on her motion. She is able to perform most daily activities but still has difficulty reaching overhead and lifting anything with weight past shoulder height. She also notes difficulty sleeping. She has quit taking pain medication for her shoulder though even OTC strength. Assessment PT Clinical Summary Yelena Randall has completed 26 skilled PT visits following a right rotator cuff repair performed on 02/15/23. She is reporting pain and stiffness in the mornings, difficulty sleeping, and difficulty reaching into overhead cabinets/shelves. She objectively demonstrates improvements in right shoulder active and passive ROM as well as right shoulder strength. Despite these improvements, she continues to demonstrate decreased flexion and abduction AROM as well as strength deficits into right shoulder flexion and abduction. These deficits continue to cause functional deficits. She will continue to benefit from skilled PT to further address these limitations. Plan of Care Interventions Electrical Stimulation,Hot Pack/Cold Pack,Manual Therapy,Patient/Caregiver Educati,Therapeutic Activities,Therapeutic Exercise PT Services Indicated Yes Treatment Frequency and Continue skilled PT 2 times a week for 8 more Duration visits. These treatments will address the objective and functional deficits as defined above. The patient will be advanced safely and appropriately in order for the patient to progress towards his/her prior level of function. Additional exercises will be introduced and as well as a comprehensive home exercise program upon discharge, if needed, ?to ensure carryover of functional gains achieved in the clinic. This treatment plan has been reviewed and agreement upon by the patient.
--- NOTE | 2023-05-18 10:09 | OPREHPOC ---
Outpatient Therapy Plan of Care This is a Multidisciplinary Plan of Care that may contain components documented by all disciplines (PT, OT, and ST.) PT Problem 1 PT Problem #1 Knowledge Deficit PT Goal 1 Goal 1. Patient to demonstrate independence with HEP to improve progress made in PT. Target Visit 3 Progress Met Comment continue to progress HEP PT Problem 2 PT Problem #2 Impaired Range of Motion PT Goal 1 Goal 1. Patient to demonstrate 150 degrees or better of passive shoulder flexion and abduction to improve ability to reach overhead into kitchen cabinets. 2. Patient to demonstrate 60 degrees or better of passive shoulder ER to improve ability to brush hair. Target Visit 26 Progress Met Comment improved ROM, continue to progress PT Goal 2 Goal 1. Patient to achieve 145 degrees of active R shoulder flexion to improve ability to hang clothes to dry. -progress toward, continue 2. Patient to achieve 125 degrees of active R shoulder abduction to improve ability to brush hair. -met Target Visit 26 Progress Partially Met Comment previous goal met, updated to continue progress of ROM PT Problem 3 PT Problem #3 Impaired Strength PT Goal 1 Goal 1. patient to be ready to progress to arom shoulder movement Target Visit 9 Progress Met PT Goal 2 Goal 1. Patient to demonstrate overall 4-/5 or better R shoulder strength to improve ability to do dishes in home. -progress toward, continue Target Visit 18 Progress Partially Met Comment continue to address PT Problem 4 PT Problem #4 Pain PT Goal 1 Goal 1. Patient to report no more than 2/10 throughout day to aid in shoulder rehab and HEP performance. -progress toward, continue Target Visit 18 Progress Partially Met Comment
--- NOTE | 2023-06-01 10:18 | OPREHPOC ---
Outpatient Therapy Plan of Care This is a Multidisciplinary Plan of Care that may contain components documented by all disciplines (PT, OT, and ST.) PT Problem 1 PT Problem #1 Knowledge Deficit PT Goal 1 Goal 1. Patient to demonstrate independence with HEP to improve progress made in PT. Target Visit 3 Progress Met Comment . PT Problem 2 PT Problem #2 Impaired Range of Motion PT Goal 1 Goal 1. Patient to demonstrate 150 degrees or better of passive shoulder flexion and abduction to improve ability to reach overhead into kitchen cabinets. 2. Patient to demonstrate 60 degrees or better of passive shoulder ER to improve ability to brush hair. Target Visit 26 Progress Met Comment . PT Goal 2 Goal 1. Patient to achieve 145 degrees of active R shoulder flexion to improve ability to hang clothes to dry. -progress toward, continue 2. Patient to achieve 125 degrees of active R shoulder abduction to improve ability to brush hair. -met Target Visit 26 Progress Partially Met Comment . PT Problem 3 PT Problem #3 Impaired Strength PT Goal 1 Goal 1. patient to be ready to progress to arom shoulder movement Target Visit 9 Progress Met PT Goal 2 Goal 1. Patient to demonstrate overall 4-/5 or better R shoulder strength to improve ability to do dishes in home. -progress toward, continue Target Visit 18 Progress Partially Met Comment . PT Problem 4 PT Problem #4 Pain PT Goal 1 Goal 1. Patient to report no more than 2/10 throughout day to aid in shoulder rehab and HEP performance. -progress toward. Target Visit 18 Progress Met Comment . PT Problem 5
--- NOTE | 2023-06-01 10:18 | PTOPPROG ---
Assessment and note entered by JT File, PT Evaluation Information Assessment Status Progress Diagnosis s/p R rotator cuff repair Onset 02/15/23 Subjective Information patient reports she feels Good today. she has no pain in the R shoulder. she is compliant with her HEP at home, and is working to progress her rom and strength at home. Assessment PT Clinical Summary mrs. arenas presents to skilled PT for her 12th skilled PT visit today, and her 4th skilled PT visit since her last re-eval. she has made progress in rom and strength of the R shoulder, but continues to lack full goals achievement on all measures. as this time, she is progressing weight resistance and repetitions at home and in therapy. she will hold on further visits for skilled PT, and progress exercises independently at home. she will follow up with PT for any new symptoms or setbacks. Plan of Care Interventions Electrical Stimulation,Hot Pack/Cold Pack,Manual Therapy,Patient/Caregiver Educati,Therapeutic Activities,Therapeutic Exercise PT Services Indicated Yes Treatment Frequency and hold PT at this time. patient will progress Duration exercises independently at home. following up with PT as needed for any new symptoms or setbacks. These treatments will address the objective and functional deficits as defined above. The patient will be advanced safely and appropriately in order for the patient to progress towards his/her prior level of function. Additional exercises will be introduced and as well as a comprehensive home exercise program upon discharge, if needed, ?to ensure carryover of functional gains achieved in the clinic. This treatment plan has been reviewed and agreement upon by the patient.
== END 2023-06-01 20:00 | disposition home or self-care (01) ==
LOC: CHSPT 16:34
PROVIDERS: Visit Provider Orthopaedic Surgery
DX: Z98.890 Other specified postprocedural states (principal)
CPT/HCPCS: 97014; 97110; 97140; 97161; 97530; G0283

== ENCOUNTER 2023-08-01 14:08 | Outpatient (CLI) | payer MEDICARE, SELFPAY ==
--- NOTE | ~2023-08-01 | MM_ITS ---
EXAMINATION: MM screening tasia BI w claudia HISTORY: Screening mammogram TECHNIQUE: Craniocaudal and mediolateral oblique 3-D tomosynthesis images were obtained and synthetic 2-D images were generated. CAD analysis was submitted and interpreted. COMPARISON: 07/20/2022 bilateral screening mammogram 05/25/2021 diagnostic right mammogram 05/06/2021 bilateral screening mammogram BREAST PARENCHYMAL COMPOSITION: There are scattered areas of fibroglandular density. FINDINGS: There is no evidence of suspicious mass, calcification, or architectural distortion to sugg est malignancy in either breast. There has been no suspicious interval change. IMPRESSION: 1. No mammographic evidence of malignancy. 2. Recommend routine screening mammography in one year. BI-RADS Category 1: Negative Reviewed, dictated and finalized at location A. Y LEVEL SOFTWARE ENGINEER
== END 2023-08-01 14:09 | disposition home or self-care (01) ==
LOC: CHSIMG 14:09
PROVIDERS: PCP Family Medicine; Visit Provider Family Medicine
DX: Z12.31 Encounter for screening mammogram for malignant neoplasm of breast (principal)
CPT/HCPCS: 77063; 77067

== ENCOUNTER 2024-06-21 08:29 | Outpatient (NON) | payer MEDICARE, SELFPAY | END 2024-06-21 08:30 | disposition home or self-care (01) | LOC: CHSLAB 08:30 | PROVIDERS: PCP Family Medicine; Visit Provider Family Medicine | DX: C44.329 Squamous cell carcinoma of skin of other parts of face (principal) | CPT/HCPCS: 88305 ==

== ENCOUNTER → 2024-08-13 11:21 | Outpatient (REF) | payer MEDICARE, SELFPAY | LOC: ANHLAB 11:21 | PROVIDERS: PCP Family Medicine; Visit Provider Plastic Surgery | DX: C44.329 Squamous cell carcinoma of skin of other parts of face (principal); D04.39 Carcinoma in situ of skin of other parts of face; L98.8 Other specified disorders of the skin and subcutaneous tissue | CPT/HCPCS: 88305 ==

== ENCOUNTER 2024-09-05 14:03 | Outpatient (CLI) | payer MEDICARE, SELFPAY ==
--- NOTE | ~2024-09-05 | MM_ITS ---
EXAMINATION: MM screening tasia BI w claudia HISTORY: Screening TECHNIQUE: Craniocaudal and mediolateral oblique 3-D tomosynthesis images were obtained and synthetic 2-D images were generated. CAD analysis was submitted and interpreted. COMPARISON: Comparison to multiple prior studies sequentially, with oldest reviewed study dated 05/06. BREAST PARENCHYMAL COMPOSITION: Not dense: There are scattered areas of fibroglandular density. FINDINGS: There is no evidence of suspicious mass, calcification, or architectural distortion to sugg est malignancy in either breast. There has been no suspicious interval change. IMPRESSION: 1. No mammographic evidence of malignancy. 2. Recommend routine screening mammography in one year. BI-RADS Category 1: Negative Reviewed, dictated and finalized at location A. NICAL BUSINESS ANALYST
== END 2024-09-05 14:04 | disposition home or self-care (01) ==
LOC: CHSIMG 14:05
PROVIDERS: PCP Family Medicine; Visit Provider Family Medicine
DX: Z12.31 Encounter for screening mammogram for malignant neoplasm of breast (principal)
CPT/HCPCS: 77063; 77067

== ENCOUNTER 2025-01-30 08:59 | Outpatient (CLI) | payer MEDICARE, SELFPAY ==
--- NOTE | ~2025-01-30 | XR_ITS ---
EXAM/ PROCEDURE: XR hand BI arthritis min 3V - 01/30/2025 9:26 CDT HISTORY: 69 years old Female with M19.049 - Primary osteoarthritis, unspecified hand COMPARISON: None available TECHNIQUE: 7 view(s) FINDINGS/ IMPRESSION: There are no fractures or dislocations.Joint space narrowing, subchondral sclerosis, subchondral cyst formation and osteophyte formation, compatible with mild to moderate osteoarthritis. Reviewed, dictated and finalized at location A.
[2025-01-30 09:28] LABS: Basophils Absolute Auto 0.05 K/mm3 (0.00-0.10); Basophils Percent Auto 0.8 % (0.0-1.0); Eosinophils Percent Auto 1.6 % (1.0-6.0); Hematocrit 42.3 % (35.0-42.0); Hemoglobin 14.4 g/dL (11.7-13.8); Immature Granulocyte Absolute 0.02 K/mm3 (0.00-0.00); Immature Granulocyte Percent A 0.3 % (0.0-0.0); Lymphocytes Absolute Auto 2.16 K/mm3 (1.10-4.50); Lymphocytes Percent Auto 34.2 % (18.0-42.0); Mean Corpuscular Hemoglobin 30.4 pg (27.0-31.0); Mean Corpuscular Volume 89.4 fL (78.0-102.0); Mean Platelet Volume 9.2 fl (9.2-11.8); Monocytes Absolute Auto 0.55 K/mm3 (0.10-0.90); Monocytes Percent Auto 8.7 % (2.0-11.0); Neutrophils Absolute Auto 3.44 K/mm3 (1.70-7.20); Neutrophils Percent Auto 54.4 % (50.0-70.0); Platelet Count Result 362 K/mm3 (150-420); Red Blood Count 4.73 M/mm3 (4.20-5.40); White Blood Count 6.3 K/mm3 (4.8-10.8)
[2025-01-30 09:59] LABS: RFT Charge Test YES; Rheumatoid Factor Screen Negative (Negative)
[2025-01-30 10:45] LABS: Alanine Aminotransferase 26 U/L (6-35); Albumin Level 4.4 g/dL (3.5-5.1); Alkaline Phosphatase 85 U/L (38-126); Anion Gap 6 mmol/L (4-12); Aspartate Amino Transferase 26 U/L (14-36); Bilirubin,Total 0.8 mg/dL (0.2-1.3); Blood Urea Nitrogen 13 mg/dL (7-17); CRP 0.9 mg/dL (<1.0); Calcium 9.5 mg/dL (8.4-10.2); Carbon Dioxide 26 mmol/L (22-30); Chloride 104 mmol/L (98-107); Estimated Glomerular Filt Rate > 60; Glucose 285 mg/dL (65-110); Osmolality Calculated 292 mOsm/kg (285-295); Potassium 4.9 mmol/L (3.4-5.0); Sodium 136 mmol/L (137-145); Total Protein 7.1 g/dL (6.3-8.2)
[2025-02-01 02:34] LABS: ANA Cascade Screen NEGATIVE (NEGATIVE)
== END 2025-01-30 09:00 | disposition home or self-care (01) ==
LOC: CHSLAB 09:01
PROVIDERS: PCP Family Medicine; Visit Provider Family Medicine
DX: I10 Essential (primary) hypertension (principal); M19.049 Primary osteoarthritis, unspecified hand; M79.641 Pain in right hand; M79.642 Pain in left hand
CPT/HCPCS: 36415; 73130; 80053; 85025; 86038; 86140; 86225; 86235; 86364; 86430; 86431